=== PATIENT | female | born 1950 | race Caucasian/White ===

== ENCOUNTER → 2017-06-27 | Outpatient (CLI) | payer MEDICARE, OTHER ==
--- NOTE | 2017-06-27 10:25 | WOMENS IMAGING REPORT ---
EXAM DESCRIPTION: BONE DENSITY HIP/SPINE COMPLETED DATE/TIME: 06/27/2017 9:55 am REASON FOR STUDY: OSTEOPOROSIS M81.0 AGE-RELATED OSTEOPOROSIS W/O CURRENT PATHOLOGICAL FRAC COMPARISON: 02/15/2003 TECHNIQUE: Dual-Energy X-ray Absorptiometry (DEXA) of the AP Spine and Hip. LIMITATIONS: None. FINDINGS: LUMBAR SPINE: The bone mineral density (BMD) measured from L1-L4 in the AP projection correlates with a T-score of -1.6, which is osteopenia as defined by the World Health Organization. HIP: The bone mineral density (BMD) measured in the left hip correlates with a T-score of -1.5 in the femo ral neck, which is osteopenia as defined by the World Health Organization. IMPRESSION: 1. LUMBAR SPINE: OSTEOPENIA. 2. HIP: OSTEOPENIA. COMMENT: The 10 year risk of major osteoporotic fracture is 12%. The 10 year risk of hip fracture i s 1.6%. The World Health Organization defines low BMD as follows: T-score: Normal: Greater than -1.0 Osteopenia: Between -1.0 and -2.5 Osteoporosis: Less than -2.5 without fractures Established osteoporosis: Less than -2.5 with fractures In general, you may wish to consider: Diagnosis Treatment Follow-up DEXA Normal BMD Prevention 2-3 years Osteopenia Prevention/Therapy 1-2 years Osteoporosis Therapy Yearly TECHNICAL DOCUMENTATION: JOB ID: [id number] All Rights Reserved
== END ==
LOC: WI 08:48
PROVIDERS: ATTEND Family Medicine
DX: M81.0 Age-related osteoporosis without current pathological fracture (principal)
CPT/HCPCS: 77080

== ENCOUNTER → 2017-10-16 | Outpatient (CLI) | payer MEDICARE, OTHER ==
--- NOTE | 2017-10-16 10:37 | XCELERA REPORT ---
[address] [address] Transthoracic Echocardiogram Report Name: CRISTI HOFFMAN Age: 66 yrs Gender: Female : 1950 Patient Status: Outpatient Patient Location: Study Date: 10/16/2017 08:02 AM Height: 64 in Weight: 160 lb BSA: 1.8 m2 Procedure: A complete two-dimensional transthoracic echocardiogram was performed (2D, M-mode, spectral and color flow Doppler). The study was technically adequate with some images being suboptimal in quality. Reason For Study: PULMONARY HYPERTENSION Ordering Physician: ANGELICA FOSTER Performed By: Carmel Villaseñor Interpretation Summary The left ventricular ejection fraction is normal. Doppler measurements suggest pseudonormalized left ventricular relaxation, which is associated with grade II/IV or mild to moderate diastolic dysfunction There is mild concentric left ventricular hypertrophy. The left ventricle is grossly normal size. Wall motion cannot be accurately commented on, but no definite regional wall motion abnormalities noted. The right ventricle is mildly dilated. The right ventricular systolic function is normal. Borderline left atrial enlargement. Borderline right atrial enlargement. There is a trace amount of mitral regurgitation There is no mitral valve stenosis. There is no aortic valve stenosis No aortic regurgitation is present. There is a mild amount of tricuspid regurgitation There is mild pulmonary hypertension by echo Right ventricular systolic pressure is estimated to be elevated at 30- 40mmHg. There is a mild amount of pulmonic regurgitation Minimal pericardial effusion. MMode/2D Measurements & Calculations RVDd: 3.5 cm LVIDd: 4.5 cm FS: 25.6 % Ao root diam: 2.5 cm IVSd: 1.1 cm LVIDs: 3.3 cm EDV(Teich): 90.7 ml LVPWd: 1.1 cm ESV(Teich): 44.8 ml Ao root area: 4.8 cm2 EF(Teich): 50.6 % LA dimension: 3.7 cm Doppler Measurements & Calculations MV E max shanae: MV P1/2t max shanae: Ao V2 max: LV V1 max P.8 cm/sec 90.3 cm/sec 183.2 cm/sec 6.4 mmHg MV A max shanae: MV P1/2t: 59.8 msec Ao max PG: LV V1 max: 107.6 cm/sec 13.4 mmHg 126.9 cm/sec MV E/A: 0.84 MVA(P1/2t): 3.7 cm2 MV dec slope: 442.7 cm/sec2 PA V2 max: TR max shanae: 86.4 cm/sec 252.5 cm/sec PA max P.0 mmHgTR max P.5 mmHg Left Ventricle The left ventricle is grossly normal size. There is mild concentric left ventricular hypertrophy. The left ventricular ejection fraction is normal. Doppler measurements suggest pseudonormalized left ventricular relaxation, which is associated with grade II/IV or mild to moderate diastolic dysfunction. Wall motion cannot be accurately commented on, but no definite regional wall motion abnormalities noted. Right Ventricle The right ventricle is mildly dilated. The right ventricular systolic function is normal. Atria Borderline right atrial enlargement. Borderline left atrial enlargement. Interarterial septum not well visualized and not well dopplered. Cannot comment on ASD/PFO presence. Mitral Valve The mitral valve is grossly normal. There is no mitral valve stenosis. There is a trace amount of mitral regurgitation. Aortic Valve The aortic valve is not well visualized secondary to technical limitations. There is no aortic valve stenosis. No aortic regurgitation is present. Tricuspid Valve The tricuspid valve is not well visualized, but is grossly normal. There is no tricuspid stenosis. There is a mild amount of tricuspid regurgitation. There is mild pulmonary hypertension by echo. Right ventricular systolic pressure is estimated to be elevated at 30-40mmHg. Pulmonic Valve The pulmonic valve is not well visualized. There is a mild amount of pulmonic regurgitation. Great Vessels The aortic root is not well visualized but is probably normal size. The inferior vena cava appeared normal and decreased > 50% with respiration (RAP 5-10 mmHg). Effusions Minimal pericardial effusion. : ANGELICA FOSTER > Birgit Espinal
--- NOTE | 2017-10-17 13:18 | Pulmonary Function Test ---
Pulmonary Function Test Date of Procedure:: 10/17/17 INDICATION:: Dyspnea Referring Provider: Dr. Baron Digital Marketing Program Manager: Jie Ramos STAMP MOUNTER - Report Spirometry: FVC 2.81 L 97% FEV1 1.99 L 86% FEV1/FVC % 71 predicted 82 FEF 25-75% 1.24 51% Lung Volume: Total lung capacity 4.26 L 88% Vital capacity 2.81 L 97% Inspiratory capacity 1.94 FRC N 2 2.32 L 87% ERV 0.59 RV 1.45 76% RV/TLC % 34 predicted 39 Diffusion Capactity: DLCO 21.7 107% DLCO/VA 3.9-105%. Impression: There is a minimal obstructive ventilatory defect based on the FEF 2575%. Lung volumes are within normal limits diffusion capacity is within normal limits test performance is questionable based on volume extract strep related FVC
== END ==
LOC: SP 07:51
PROVIDERS: ATTEND Internal Medicine Rheumatology
DX: J84.9 Interstitial pulmonary disease, unspecified (principal); I27.20 Pulmonary hypertension, unspecified
CPT/HCPCS: 93306; 94010; 94727; 94729; 94761

== ENCOUNTER → 2018-11-10 | Outpatient (CLI) | payer MEDICARE, OTHER ==
--- NOTE | 2018-11-10 22:17 | XCELERA REPORT ---
[address] [address] Transthoracic Echocardiogram Report Name: CRISTI HOFFMAN Age: 67 yrs Gender: Female : 1950 Patient Status: Outpatient Patient Location: Study Date: 11/10/2018 09:19 AM Height: 64 in Weight: 155 lb BSA: 1.8 m2 Procedure: A two-dimensional transthoracic echocardiogram with color flow and Doppler was performed. Study Quality: Fair. Reason For Study: PULMONARY HYPERTENSION History: PULMONARY HYPERTENSION. Ordering Physician: ANGELICA FOSTER Performed By: Tran Becerril Interpretation Summary The left ventricle is normal in size. There is normal left ventricular wall thickness. LV EF is 60% The left ventricular ejection fraction is within normal limits. Doppler measurements suggest impaired left ventricular relaxation, which is associated with grade I/IV or mild diastolic dysfunction The left ventricular wall motion is normal. There is no thrombus. There is no ventricular septal defect visualized. The right ventricle is normal in size and function. The right atrium is normal. The left atrial size is normal. The interatrial septum is intact with no evidence for an atrial septal defect. There is no Doppler evidence for an interatrial shunt There is no evidence of mitral valve prolapse. There is no vegetation seen on the mitral valve. There is no mitral valve stenosis. There is a trace amount of mitral regurgitation There is no aortic valvular vegetation. There is mild aortic stenosis There is a peak gradient of 19 mm of Hg. No hemodynamically significant valvular aortic stenosis. There is no LVOT obstruction. No aortic regurgitation is present. There is no tricuspid stenosis. There is a mild amount of tricuspid regurgitation There is mild pulmonary hypertension by echo RVSP is 36 to 41 mm of Hg , with RA mean of 5 to 10. There is no pulmonic valvular stenosis. There is no pulmonic valvular regurgitation. The aortic root is normal size. The inferior vena cava appeared normal and decreased > 50% with respiration (RAP 5-10 mmHg) There is no pericardial effusion. MMode/2D Measurements & Calculations RVDd: 3.1 cm LVIDd: 4.9 cm FS: 31.7 % Ao root diam: 2.4 cm IVSd: 0.99 cm LVIDs: 3.4 cm EDV(Teich): 115.4 ml Ao root area: 4.7 cm2 LVPWd: 1.0 cm ESV(Teich): 46.8 ml LA dimension: 3.5 cm EF(Teich): 59.5 % Doppler Measurements & Calculations MV E max shanae: MV P1/2t max shanae: Ao V2 max: LV V1 max P.9 cm/sec 83.4 cm/sec 216.3 cm/sec 6.9 mmHg MV A max shanae: MV P1/2t: 93.8 msec Ao max PG: LV V1 max: 107.1 cm/sec MVA(P1/2t): 2.3 cm2 18.7 mmHg 131.8 cm/sec MV E/A: 0.78 MV dec slope: 260.3 cm/sec2 MV dec time: 0.32 sec PA V2 max: TR max shanae: MV P1/2t-pr_phl: 118.5 cm/sec 279.6 cm/sec 93.8 msec PA max P.6 mmHgTR max P.3 mmHg Left Ventricle The left ventricle is normal in size. There is normal left ventricular wall thickness. LV EF is 60%. The left ventricular ejection fraction is within normal limits. Doppler measurements suggest impaired left ventricular relaxation, which is associated with grade I/IV or mild diastolic dysfunction. The left ventricular wall motion is normal. There is no thrombus. There is no ventricular septal defect visualized. Right Ventricle The right ventricle is normal in size and function. Atria The right atrium is normal. The left atrial size is normal. The interatrial septum is intact with no evidence for an atrial septal defect. There is no Doppler evidence for an interatrial shunt. Mitral Valve There is no evidence of mitral valve prolapse. There is no vegetation seen on the mitral valve. There is no mitral valve stenosis. There is a trace amount of mitral regurgitation. Aortic Valve There is no aortic valvular vegetation. There is mild aortic stenosis. There is a peak gradient of 19 mm of Hg. No hemodynamically significant valvular aortic stenosis. There is no LVOT obstruction. No aortic regurgitation is present. Tricuspid Valve There is no tricuspid stenosis. There is a mild amount of tricuspid regurgitation. There is mild pulmonary hypertension by echo. RVSP is 36 to 41 mm of Hg , with RA mean of 5 to 10. Pulmonic Valve There is no pulmonic valvular stenosis. There is no pulmonic valvular regurgitation. Great Vessels The aortic root is normal size. The inferior vena cava appeared normal and decreased > 50% with respiration (RAP 5-10 mmHg). Effusions There is no pericardial effusion. : ANGELICA FOSTER > Zena Campos
== END ==
LOC: SP 08:54
PROVIDERS: ATTEND Internal Medicine Rheumatology
DX: I27.20 Pulmonary hypertension, unspecified (principal)
CPT/HCPCS: 93306

== ENCOUNTER → 2018-12-19 | Outpatient (CLI) | payer MEDICARE, OTHER ==
[~2018-12-19] MED LIST: ALBUTEROL SULFATE 0.083% NEB 2.5 MG/3 ML AMPUL NEB ONE
--- NOTE | 2018-12-22 11:22 | Pulmonary Function Test ---
Pulmonary Function Test Date of Procedure:: 12/22/18 INDICATION:: Dyspnea Referring Provider: Dr. Baron [employer]ch Felled Seam Operator: Jie Ramos ADVERTISING INSERTER - Report Spirometry: FVC 2.81 L 102% postbronchodilator 2.77 L 100% FEV1 2.04 L 93% postbronchodilator 2.13 L 97% FEV1/FVC % 72 postbronchodilator 77 predicted 82 FEF 25-75% 1.40 L 61% postbronchodilator 1.95 L 85% Lung Volume: Total lung capacity 4.30 L 93% Vital capacity 2.1 L 102% Inspiratory capacity 2.17 L FRC N2 2.13 L 83% ERV 0.52 RV 1.49 L 81% RV/TLC % 35 predicted 40 Diffusion Capactity: Diffusion capacity 18.7 96% DLCO/VA3.82 103% Impression: Mild obstructive ventilatory defect best implied by the decrease in FEF 25-75%. No hyperinflation and air trapping. Normal diffusion capacity.
== END ==
LOC: RT 09:24
PROVIDERS: ATTEND Internal Medicine Rheumatology
DX: J84.9 Interstitial pulmonary disease, unspecified (principal); R06.00 Dyspnea, unspecified
CPT/HCPCS: 94729; 94727; 94060; 94761; A9270

== ENCOUNTER → 2019-10-05 | Outpatient (CLI) | payer MEDICARE, OTHER ==
--- NOTE | 2019-10-05 18:20 | XCELERA REPORT ---
[address] [address] Transthoracic Echocardiogram Report Name: CRISTI HOFFMAN Age: 68 yrs Gender: Female : 1950 Patient Status: Outpatient Patient Location: Study Date: 10/05/2019 03:07 PM Height: 64 in Weight: 150 lb BSA: 1.7 m2 Procedure: A complete two-dimensional transthoracic echocardiogram was performed (2D, M-mode, spectral and color flow Doppler). The study was technically adequate with some images being suboptimal in quality. Reason For Study: PULMONARY HYPERTENSION Ordering Physician: ANGELICA FOSTER Performed By: Tierra Ferraro Interpretation Summary The left ventricular ejection fraction is normal. There is borderline concentric left ventricular hypertrophy. The left ventricle is grossly normal size. Doppler measurements suggest pseudonormalized left ventricular relaxation, which is associated with grade II/IV or mild to moderate diastolic dysfunction Wall motion cannot be accurately commented on, but no definite regional wall motion abnormalities noted. The right ventricular systolic function is normal. Borderline left atrial enlargement. The right atrium is normal in size There is a mild amount of mitral regurgitation There is no mitral valve stenosis. No aortic regurgitation is present. There is no aortic valve stenosis There is a mild amount of tricuspid regurgitation There is mild pulmonary hypertension by echo Right ventricular systolic pressure is estimated to be elevated at 30-40mmHg. The aortic root is not well visualized but is probably normal size. The inferior vena cava appeared normal and decreased > 50% with respiration (RAP 5-10 mmHg) There is no pericardial effusion. MMode/2D Measurements & Calculations RVDd: 3.0 cm LVIDd: 4.8 cm FS: 32.6 % Ao root diam: 2.5 cm IVSd: 0.84 cm LVIDs: 3.2 cm EDV(Teich): 107.2 ml Ao root area: 4.9 cm2 LVPWd: 0.86 cm ESV(Teich): 41.9 ml LA dimension: 3.4 cm EF(Teich): 60.9 % Doppler Measurements & Calculations MV E max shanae: MV P1/2t max shanae: Ao V2 max: LV V1 max P.2 cm/sec 118.2 cm/sec 174.3 cm/sec 7.3 mmHg MV A max shanae: MV P1/2t: 61.9 msec Ao max PG: LV V1 max: 103.6 cm/sec MVA(P1/2t): 3.6 cm2 12.2 mmHg 135.1 cm/sec MV E/A: 0.90 MV dec slope: 559.1 cm/sec2 MV dec time: 0.26 sec PA V2 max: TR max shanae: MV P1/2t-pr_phl: 107.5 cm/sec 276.3 cm/sec 61.9 msec PA max P.6 mmHgTR max P.5 mmHg Left Ventricle The left ventricle is grossly normal size. There is borderline concentric left ventricular hypertrophy. The left ventricular ejection fraction is normal. Doppler measurements suggest pseudonormalized left ventricular relaxation, which is associated with grade II/IV or mild to moderate diastolic dysfunction. Wall motion cannot be accurately commented on, but no definite regional wall motion abnormalities noted. Right Ventricle The right ventricle is grossly normal size. There is normal right ventricular wall thickness. The right ventricular systolic function is normal. Atria The right atrium is normal in size. Borderline left atrial enlargement. Interarterial septum not well visualized and not well dopplered. Cannot comment on ASD/PFO presence. Mitral Valve The mitral valve is grossly normal. There is no mitral valve stenosis. There is a mild amount of mitral regurgitation. Aortic Valve The aortic valve is grossly normal. There is no aortic valve stenosis. No aortic regurgitation is present. Tricuspid Valve The tricuspid valve is not well visualized, but is grossly normal. There is no tricuspid stenosis. There is a mild amount of tricuspid regurgitation. There is mild pulmonary hypertension by echo. Right ventricular systolic pressure is estimated to be elevated at 30-40mmHg. Pulmonic Valve The pulmonic valve is not well visualized. Great Vessels The aortic root is not well visualized but is probably normal size. The inferior vena cava appeared normal and decreased > 50% with respiration (RAP 5-10 mmHg). Effusions There is no pericardial effusion. : ANGELICA FOSTER Shyamal
== END ==
LOC: SP 14:33
PROVIDERS: ATTEND Internal Medicine Rheumatology
DX: I27.20 Pulmonary hypertension, unspecified (principal)
CPT/HCPCS: 93306

== ENCOUNTER → 2019-10-09 | Outpatient (CLI) | payer MEDICARE, OTHER ==
--- NOTE | 2019-10-12 16:01 | Pulmonary Function Test ---
Pulmonary Function Test Date of Procedure:: 10/09/19 INDICATION:: Dyspnea Referring Provider: Dr. Salazar Baron Repairer Wood Furniture: Cornelia Rowan WASTE WATER WORKER, NECKTIE MAKER - Report Spirometry: Spirometry: pre-FVC: 2.63 L 92% post-FVC: 2.78 L 97% pre-FEV:1 1.78 L 78% post-FEV1: 2.03 L 89% pre-FEV1/FVC %: 68 post-FEV1/FVC%: 73 predicted: 82 [id number]%: 0.95 L 40% [id number]%: 1.40 L 60% Lung Volume: Total lung capacity: 4.53 L 94% Vital capacity: 2.63 L 92% Inspiratory capacity: 1.99 L FRC N2: 2.54 L 94% ERV: 0.45 L RV: 1.89 L 98% RV/TLC %:: 42 predicted 40 Diffusion Capactity: DLCO: 16.0 81% DLCO/VA: 3.93 106% Impression: Mild obstructive ventilatory defect. Good response to bronchodilator therapy. No restrictive ventilatory defect. No hyperinflation. No air trapping. Normal diffusion capacity.
== END ==
LOC: RT 08:16
PROVIDERS: ATTEND Internal Medicine Rheumatology
DX: J84.10 Pulmonary fibrosis, unspecified (principal); R06.00 Dyspnea, unspecified
CPT/HCPCS: 94729; 94727; 94060; A9270